=== PATIENT | male | born 2005 | race Caucasian/White ===

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

== ENCOUNTER 2025-01-24 11:29 | Emergency (ER) | payer BC ==
[2025-01-24 12:55] VITALS: RESP 18; TEMP 97.9
--- NOTE | 2025-01-24 14:16 | ERPHSYRPT ---
- History of Present Illness Time Seen by Provider: 01/24/25 14:11 Source: patient Exam Limitations: no limitations Patient Subjective Stated Complaint: Pt. states, "I got into an argument with my mom last night because I left and didn't tell her where I was going. It got kind of heated and she told me I need psychiatric help. I am a little depressed and I do abuse alcohol on the weekends but I am not suicidal or homicidal." Triage Nursing Assessment: Pt. ambulates to room without difficulty, He is A&Ox4m, Normal affect, pleasant and cooperative. Skin P/W/D, No edema, denies pain. Mitchell SI or HI. Physician History: Patient is a 19-year-old male with history of anxiety and depression currently not medicated presents to our ED for evaluation of depressed mood. Patient states he got into an argument with his mother last night because he did not tell her where he was going. Patient states the argument got "heated". Mother told him that he needed psychiatric help and thus patient is here seeking psychiatric services. No homicidal suicidal ideation. No previous history of homicidal or suicidal ideation. Patient otherwise asymptomatic. Patient denies ingesting toxic substances. Patient drinks on occasions mostly on weekends. Patient otherwise feels well. He voices no other complaints or concerns at this time. Portions of this note were created with voice recognition technology. There may be grammatical, spelling, punctuation or sound alike errors Timing/Duration: yesterday Severity of Symptoms-Max: moderate Severity of Symptoms-Current: mild Context related to: parent Associated Symptoms: denies symptoms Previous symptoms: no prior history Allergies/Adverse Reactions: No Known Drug Allergies Allergy (Unverified 10/07/22 01:26) Home Medications: No Reportable Medications [No Reported Medications] 01/24/25 [History] Hx Tetanus, Diphtheria Vaccination/Date Given: Yes Hx Influenza Vaccination/Date Given: No Hx Pneumococcal Vaccination/Date Given: No Immunizations Up to Date: No Travel Risk - International Travel Have you traveled outside of the country in past 3 weeks: No - Emerging Infectious Disease Are you exhibiting symptoms associated with any current EIDs: No - Past Medical History Pertinent Past Medical History: Yes Neurological History: No Pertinent History ENT History: No Pertinent History Cardiac History: No Pertinent History Respiratory History: No Pertinent History Endocrine Medical History: No Pertinent History Musculoskeletal History: Fractures, Other GI Medical History: No Pertinent History History: No Pertinent History Psycho-Social History: Anxiety, Depression Male Reproductive Disorders: No Pertinent History Other Medical History: scoliosis, left arm fx, inguinal hernia repair - Past Surgical History Past Surgical History: Yes Neuro Surgical History: No Pertinent History Cardiac: No Pertinent History Respiratory: No Pertinent History Gastrointestinal: Other Genitourinary: No Pertinent History Musculoskeletal: Orthopedic Surgery Male Surgical History: No Pertinent History Other Surgical History: inguinal hernia repair, left arm fx sx repair Significant Family History: no pertinent family hx - Social History Smoking Status: Never smoker Exposure to second hand smoke: No Drug Use: marijuana - Social Determinants of Health Will the patient participate in the screening: Yes Do you worry about a steady place to live?: No Do you have any problems with any of the following?: No known problems In the past 12 months,have you had to go without utilities?: No Transportation Issues: No Has anyone in your support network made you feel unsafe?: No Have you or anyone in your house had to go w/o enough food: No - Review of Systems All Other Systems: Reviewed and Negative - Nursing Vital Signs Nursing Vital Signs: Initial Vital Signs Temperature 97.9 F 01/24/25 11:29 Pulse Rate 71 01/24/25 11:29 Respiratory Rate 18 01/24/25 11:29 Blood Pressure 127/81 01/24/25 11:29 O2 Sat by Pulse Oximetry 100 01/24/25 11:29 Pain Scale Pain Intensity 0 - Physical Exam General Appearance: no apparent distress Eyes, Ears, Nose, Throat Exam: normal ENT inspection, moist mucous membranes Neck Exam: normal inspection, non-tender, supple Respiratory Exam: normal breath sounds, lungs clear, airway intact, No respiratory distress Cardiovascular Exam: regular rate/rhythm, normal heart sounds, normal peripheral pulses, No edema Gastrointestinal/Abdominal Exam: soft, No tenderness, No distention Extremities Exam: normal inspection, normal range of motion, No evidence of injury, No edema Current Suicidality: denies suicide plan Neurological Exam: alert, bargeman II-XII nml as tested, oriented x 3 Appearance: appropriate appearance, appropriate insight, neat Behavior/Eye Contact/Speech: alert & cooperative, cooperative, good eye contact, normal speech Thoughts/Hallucinations: normal thought pattern, no apparent hallucination, auditory hallucinations Skin Exam: normal color, warm, dry, No rash SpO2 Interpretation: normal SpO2: 100 O2 Delivery: Room Air - Course Nursing assessment & vital signs reviewed: Yes Ordered Tests: Active Orders 24 hr Category Date Time Status Alcohol [ETHYL ALCOHOL] Stat Lab 01/24/25 14:15 Completed Urine Triage Profile Stat Lab 01/24/25 13:39 Completed Lab/Rad Data: Laboratory Results 01/24/25 01/24/25 Range/Units 14:15 13:39 Urine Opiates Level NEGATIVE (NEGATIVE) Ur Methadone NEGATIVE (NEGATIVE) Urine Barbiturates NEGATIVE (NEGATIVE) Ur Phencyclidine (PCP) NEGATIVE (NEGATIVE) Urine Amphetamine NEGATIVE (NEGATIVE) U Benzodiazepine Level NEGATIVE (NEGATIVE) Urine Cocaine NEGATIVE (NEGATIVE) Urine Marijuana (THC) POSITIVE A (NEGATIVE) Ethyl Alcohol 103 H (0-10) mg/dL - Progress Progress: improved Progress Note: Pt. states, "I got into an argument with my mom last night because I left and didn't tell her where I was going. It got kind of heated and she told me I need psychiatric help. I am a little depressed and I do abuse alcohol on the weekends but I am not suicidal or homicidal." Workup reveals marijuana use and alcohol use. Physical exam otherwise unremarkable. Patient is appropriate c onversant well-appearing engaging. Patient evaluated by Dr. Stockton. Patient was cleared for discharge with a safety plan at 4:15 PM. Patient reassessed. He is in good spirits father at bedside. Patient denies homicidal suicidal ideation. He will follow-up as discussed. They voiced no other complaints or concerns at this time. History obtained from patient. Differential diagnosis is depression bipolar, suicidal, schizophrenia Portions of this note were created with voice recognition technology. There may be grammatical, spelling, punctuation or sound alike errors Complexity of problem addressed is moderate acute complicated. No critical care time. Complex of data reviewed and analyzed as moderate. Test ordered chest reviewed results analyzed and correlated clinically with history and physical exam. Risk of complication and or risk of morbidity/mortality of patient management is low. Vital stable. Time spent to discharge patient is approximately 15 minutes. Plan of care established for shared decision making. No social determinants of health present to be follow-up. Portions of this note were created with voice recognition technology. There may be grammatical, spelling, punctuation or sound alike errors 01/24/25 14:11 01/24/25 18:01 Counseled pt/family regarding: diagnosis, need for follow-up - Departure Departure Disposition: Home Clinical Impression: Depressed mood Condition: Stable Critical Care Time: No Referrals: NAYLA DEL CID [Primary Care Provider, [facility]] - Follow up/PCP as directed Additional Instructions: Discharge/Care Plan ZAINAB BROWNE was seen on 01/24/25 in the Emergency Room. The patient was counseled regarding Diagnosis,Lab results, Imaging studies, need for follow up and when to return to the Emergency Room. Prescriptions given: Discharge Note I have spoken with the patient and/or caregivers. I have explained the patient's condition, diagnosis and treatment plan based on the information available to me at this time. I have answered the patient's and/or caregiver's questions and addressed any concerns. The patient and/or caregivers have as good understanding of the patient's diagnosis, condition and treatment plan as can be expected at this point. The vital signs have been stable. The patient's condition is stable and appropriate for discharge from the emergency department. The patient will pursue further outpatient evaluation with the primary care physician or other designated or consulting physician as outlined in the discharge instructions. The patient and/or caregivers are agreeable to this plan of care and follow-up instructions have been explained in detail. The patient and/or caregivers have received these instruction. The patient/and or caregivers are aware that any significant change in condition or worsening of symptoms should prompt an immediate return to this or the closest emergency department or call 911.
[2025-01-24 14:53] LABS: Amphetamine,Urine NEGATIVE (NEGATIVE); Barbiturate,Urine NEGATIVE (NEGATIVE); Benzodiazepine,Urine NEGATIVE (NEGATIVE); Cocaine,Urine NEGATIVE (NEGATIVE); Methadone,Urine NEGATIVE (NEGATIVE); Opiate,Urine NEGATIVE (NEGATIVE); PCP,Urine NEGATIVE (NEGATIVE); THC,Urine POSITIVE (NEGATIVE)
[2025-01-24 18:00] VITALS: O2SAT 100
[2025-01-24 18:05] VITALS: BP 122/74; PULSE 68
== END 2025-01-24 18:16 | disposition home or self-care (01) ==
LOC: ED 11:29
DX: F32.A Depression, unspecified (principal); F10.10 Alcohol abuse, uncomplicated; F43.9 Reaction to severe stress, unspecified; Y90.5 Blood alcohol level of 100-119 mg/100 ml